=== PATIENT | male | born 1955 | race Caucasian/White ===

== ENCOUNTER 2018-11-13 20:24 | Emergency (ER) | payer OTHER ==
[~2018-11-13] VITALS: Ht 167.6 cm; Wt 85.0 kg
[2018-11-13 20:33] VITALS: RESP 16; Ht 167.6 cm; Wt 85.0 kg
--- NOTE | 2018-11-13 23:00 | ERD ---
ER Documentation Chief Complaint Chief Complaint HTN HPI The patient is a 63-year-old male, presenting to the ER because of elevated blood pressure at home. He was recently diagnosed with hypertension, he had extensive blood tests done recently and is awaiting to see his physician before he can start antihypertensive medication. He denies dizziness, syncope, near syncope, neck pain, chest pain, dyspnea, abdominal pain, vomiting 20 sigmoid diarrhea. He smokes and drinks socially Past medical history: Hypertension Past surgical history: Left shoulder arthroscopy ROS All systems reviewed and are negative except as per history of present illness. Allergies Allergies: Coded Allergies: No Known Allergy (Unverified , 11/13/18) PMhx/Soc Medical and Surgical Hx: pt denies Medical Hx History of Surgery: Yes (left shoulder sx) Anesthesia Reaction: No Hx Alcohol Use: No Hx Substance Use: No Hx Tobacco Use: No Smoking Status: Never smoker Physical Exam Vitals Vital Signs Date Temp Pulse Resp B/P (MAP) Pulse Ox O2 O2 Flow FiO2 Time Delivery Rate 11/13/18 70 138/84 98 Room Air 23:17 (102) 11/13/18 97.3 82 16 174/84 97 20:33 (114) Physical Exam Const: No acute distress. Head: Atraumatic. Eyes: Normal Conjunctiva. ENT: Normal External Ears, Nose and Mouth. Neck: Full range of motion. No meningismus. Resp: Clear to auscultation bilaterally. Cardio: Regular rate and rhythm. Abd: Soft, non distended, normal bowel sounds, non tender. Skin: No petechiae or rashes. Back: No midline or flank tenderness. Ext: No cyanosis, or edema. Neur: Awake and alert. No focal deficit Psych: Normal Mood and Affect. Results 24 hrs Laboratory Tests Test 11/13/18 22:56 Bedside Urine pH (LAB) 5.5 Bedside Urine Protein (LAB) Negative Bedside Urine Glucose (UA) Negative Bedside Urine Ketones (LAB) Trace Bedside Urine Blood Negative Bedside Urine Nitrite (LAB) Negative Bedside Urine Leukocyte Esterase (L Negative Procedures/MDM MEDICAL MAKING DECISION: The patient is a 63-year-old male, presenting with chronic hypertension. Blood pressure improved without any intervention, he is stable for present follow-up The differential diagnoses considered include but are not limited to anxiety attack, panic attack, dietary noncompliance Departure Diagnosis: Primary Impression: HTN (hypertension) Condition: Good Comments I discussed the findings with the patient. I advised the patient to follow-up with the primary physician in about 2-3 days, sooner if needed and return if any concern. Disclaimer: Inadvertent spelling and grammatical errors are likely due to EHR/di ctation software use and do not reflect on the overall quality of patient care. Also, please note that the electronic time recorded on this note does not necessarily reflect the actual time of the patient encounter. PEYTON NEUMANN MD Nov 13, 2018 23:00
[2018-11-13 23:17] VITALS: BP 138/84; PULSE 70
== END 2018-11-13 23:44 | disposition home or self-care (01) ==
LOC: E/R 20:24
DX: I10 Essential (primary) hypertension (principal)
CPT/HCPCS: 81003; 93005; 99282